=== PATIENT | female | born 1955 | race Caucasian/White ===

== ENCOUNTER → 2017-04-27 | Outpatient (CLI) | payer MEDICARE ==
--- NOTE | 2017-04-27 12:07 | CT ---
EXAM DESCRIPTION: Head CLINICAL HISTORY: 62 years, Female, WEAKNESS OF RIGHT LEG COMPARISON: None TECHNIQUE: Head CT was performed without IV contrast. This exam was performed according to our departmental dose-optimization program, which includes automated exposure control, adjustment of the mA and/or kV according to patient size and/or use of iterative reconstruction technique. FINDINGS: There is no acute intracranial hemorrhage. There is no midline shift or other mass effect. The ventricles and basilar cisterns are well maintained. Allison-white matter differentiation is intact. Visualized paranasal sinuses and orbits are unremarkable. There is no calvarial fracture. IMPRESSION: No acute findings. If symptoms persist or worsen, followup head CT in 24 hr or MRI is recommended. Electronically signed by: Aubrey Hoffman MD 04/27/2017 12:06 PM CDT
== END | disposition home or self-care (01) ==
LOC: CT 11:27
PROVIDERS: ATTEND Nurse Practitioner Family
DX: G83.11 Monoplegia of lower limb affecting right dominant side (principal); R55 Syncope and collapse; E03.9 Hypothyroidism, unspecified

== ENCOUNTER → 2018-07-12 | Outpatient (CLI) | payer MEDICARE ==
--- NOTE | 2018-07-15 15:35 | MAM ---
EXAM DESCRIPTION: 3D Screening BILATERAL : Digital Mammography. CLINICAL HISTORY: 63 years Female SCREEN . No complaints. No personal or family history of breast cancer. Childbirth. Postmenopausal 31 years. HRT 5 or more years ago.. Lifetime risk of developing breast cancer (Tyrer-Cuzick model)(%): 5.0. COMPARISON: 2-D digital screening bilateral mammography. 11/09/2014. No prior reports are not available. TECHNIQUE: Bilateral CC and MLO projection full-field images, digital tomosynthesis mammographic technique. Bilateral digital 2-D full-field MLO images. CAD not available for tomosynthesis or 2-D images. FINDINGS: The breast parenchymal density pattern is: Scattered areas of fibroglandular density. No skin thickening or nipple retraction. Bilateral solitary microcalcifications. More fibroglandular densities in the right breast compared to the left.. No new focal, stellate mass or density, focal asymmetry , and no suspicious microcalcifications bilaterally. Stable mammograms compared to prior study. Taking into account, differences in mammographic technique. IMPRESSION: Benign exam. BIRAD CATEGORY: 2 BENIGN FINDINGS. RECOMMENDATIONS: FOLLOW UP: Routine digital bilateral mammographic screening, one year interval from June 2018. Written communication explaining the IMPRESSION and follow-up, will be mailed to the patient and referring health care provider. According to the [employer], yearly mammograms are recommended starting at age 40 and continuing as long as a woman is in good health. Any breast change noted on a breast self-exam should be reported promptly to the patient's healthcare provider. Breast MRI is recommended for women with an approximately 20-25% or greater lifetime risk of breast cancer, including women with a strong family history of breast or ovarian cancer and women who have been treated for Hodgkin's disease. A negative mammographic report should not delay tissue diagnosis in patients with significant clinical history or physical findings. Extremely dense breast tissue limits the sensitivity of digital mammography. Electronically signed by: Kirk Browning MD 07/15/2018 3:34 PM [facility]
== END ==
LOC: MAMMO 13:30
PROVIDERS: ATTEND Nurse Practitioner Family
DX: Z12.31 Encounter for screening mammogram for malignant neoplasm of breast (principal)

== ENCOUNTER → 2019-05-05 | Outpatient (CLI) | payer MEDICARE | LOC: LAB.O 08:52 | DX: M05.79 Rheumatoid arthritis with rheumatoid factor of multiple sites without organ or systems involvement (principal) ==

== ENCOUNTER → 2019-06-09 | Outpatient (CLI) | payer MEDICARE | LOC: LAB.O 09:24 | DX: M06.9 Rheumatoid arthritis, unspecified (principal) ==

== ENCOUNTER → 2019-10-22 | Outpatient (CLI) | payer MEDICARE ==
--- NOTE | 2019-10-22 19:34 | US ---
EXAM DESCRIPTION: Breast,Right: Ultrasound CLINICAL HISTORY: 64 yearsFemaleABNORMAL MAMMO focal asymmetry in the right breast Lifetime risk of developing breast cancer (Tyrer-Cuzick model)(%): 4.8. COMPARISON: Bilateral screening digital breast tomosynthesis October 07. TECHNIQUE: Transcutaneous scanning of the right breast utilizing bailey-scale and Doppler modes. Scanning performed by the adhesive primer with observation by Dr. Browning. FINDINGS: Ultrasound: scanning of the upper-outer quadrant of the anterior third of the right breast 6 cm from the nipple. Layer of fibroglandular tissue, relatively focal between 2 layers of fatty tissue. No dominant solid mass and no distinct cyst. No parenchymal edema or large calcifications. No overlying skin changes. IMPRESSION: Benign exam. Focal fibroglandular tissue. BIRAD CATEGORY: 2 BENIGN FINDINGS. RECOMMENDATIONS: FOLLOW UP: Return to routine digital bilateral mammographic screening, one year interval from September 2019. Written communication explaining the IMPRESSION and follow-up, will be mailed to the patient and referring health care provider. The FINDINGS and the FOLLOW-UP plan were reviewed in person with the patient after the examination. According to the [employer], yearly mammograms are recommended starting at age 40 and continuing as long as a woman is in good health. Any breast change noted on a breast self-exam should be reported promptly to the patient's healthcare provider. Breast MRI is recommended for women with an approximately 20-25% or greater lifetime risk of breast cancer, including women with a strong family history of breast or ovarian cancer and women who have been treated for Hodgkin's disease. A negative mammographic report should not delay tissue diagnosis in patients with significant clinical history or physical findings. Extremely dense breast tissue limits the sensitivity of digital mammography. Electronically signed by: Kirk Browning MD 10/22/2019 7:33 PM CDT
== END ==
LOC: MAMMO 10:00
PROVIDERS: ATTEND Nurse Practitioner Family
DX: R92.8 Other abnormal and inconclusive findings on diagnostic imaging of breast (principal)